=== PATIENT | female | born 1995 | race Caucasian/White ===

== ENCOUNTER 2018-07-11 18:58 | Emergency (ER) | payer OTHER ==
[~2018-07-11] VITALS: Ht 160 cm; Wt 57.6 kg
[2018-07-11] MEDS: IV NORMAL SALINE 1000ML BAG 1,000 ML IV ONE (19:15)
[2018-07-11] MEDS ORDERED: ONDANSETRON PF 4 MG/2 ML VIAL. IV ONE (19:15)
[2018-07-11] MEDS ORDERED: LIDOCAINE/EPI/TETRACAINE TOPICAL GEL 3 ML. TP ONE (19:15)
[2018-07-11 19:36] VITALS: BP 122/75
[2018-07-11] MEDS ORDERED: MORPHINE SULFATE 4 MG/ML VIAL. ONE (20:32)
[2018-07-11] MEDS ORDERED: MORPHINE SULFATE 4 MG/ML VIAL. IV ONE (20:45)
[2018-07-11 21:09] LABS: BILIRUBIN,URINE NEGATIVE (NEG); CLARITY,URINE CLEAR; COLOR,URINE YELLOW; NITRITE,URINE NEGATIVE (NEG); PROTEIN,URINE NEGATIVE (NEG-TRACE); UROBILINOGEN,URINE 0.2 mg/dL (0.2 mg/dL)
[2018-07-11 21:16] LABS: BACTERIA,URINE MANY /HPF (0-FEW); RBC,URINE 0 /HPF (0-2); SQUAMOUS EPITHELIAL CELL,UR FEW /LPF
--- NOTE | 2018-07-11 22:08 | RAD ---
Limited OB ultrasound 07/11/2018 CLINICAL HISTORY: Second trimester with abdominal pain possible trauma. TECHNIQUE: A limited real-time ultrasound examination of the gravid uterus was performed. Multiple images were obtained. FINDINGS: There is a single living IUP. The fetus is in a transverse position. cardiac and somatic activity is seen. The heart rate is 143 bpm period The maternal cervix is closed. It measures 3.3 cm in size. The placenta is a fundal position. Several placental lakes are seen scattered throughout the placenta. No significant abnormality of the placenta is seen. The amniotic fluid volume is within normal limits. Neither maternal ovary is visualized. The following measurements were obtained: BPD 4.95 cm 21 weeks 0 days HC 19.1 cm 21 weeks 2 days AC 17.1 cm 22 weeks 0 days FL 3.62 cm 21 weeks 3 days The estimated gestational age by ultrasound is 21 weeks 3 days plus or minus a standard deviation of 10 days. The estimated date of delivery by ultrasound is 11/18/2018. Detailed evaluation of anatomy was not performed IMPRESSION: Single living IUP with an estimated gestational age by ultrasound of 21 weeks 3 days plus or minus a standard deviation of 10 days. Electronically signed by: Jayesh Parkinson MD (07/11/2018 10:04 PM) [facility]
--- NOTE | 2018-07-12 04:09 | PHYS DOC ---
Past Medical History Past Medical History: No Pertinent History Past Surgical History: No Surgical History Alcohol Use: None Drug Use: None Adult General Chief Complaint Chief Complaint: LACERATION/AVULSION [facility] HPI Patient is a 22 year old G1, P0 estimated 22 week gestation female who presents from work with syncopal episode and left scalp laceration. Patient states she has had syncopal episodes 2 since . While at work today, the patient reported feeling lightheaded dizzy and overheated. She sat down and then had loss of consciousness hitting the side of her head. Patient with a 3 cm deep full thickness laceration over the superior parietal scalp. Denies headache, neck pain. No chest pain palpitations, shortness of breath. Denies abdominal pain, flank pain, vaginal discharge, bleeding or fluid leak. No other symptoms or complaints. Review of Systems Review of Systems ROS as per HPI All other systems were reviewed and found to be within normal limits, except as documented in this note. Current Medications Current Medications Current Medications Medications (Trade) Dose Ordered Sig/Cheryl Start Time Stop Time Status Last Admin Dose Admin Lidocaine/ Epinephrine (Let Topical) 3 ml 1X ONCE 07/11/18 19:15 07/11/18 19:47 DC Morphine Sulfate (Morphine Sulfate) 4 mg 1X ONCE 07/11/18 20:45 07/11/18 20:46 DC Ondansetron HCl (Zofran) 4 mg 1X ONCE 07/11/18 19:15 07/11/18 19:47 DC Sodium Chloride 1,000 ml @ 1,000 mls/hr 1X ONCE 07/11/18 19:15 07/11/18 20:14 DC 07/11/18 19:15 1,000 MLS/HR Allergies Allergies Allergies Coded Allergies Type Severity Reaction Last Updated Verified Penicillins Allergy Severe Unknown 07/11/18 Yes Physical Exam Physical Exam Constitutional: Well developed, well nourished, no acute distress, non-toxic appearance. [] HENT: Normocephalic, 3 cm full thickness horizontal laceration L parietal scalp , bleeding controlled, bilateral external ears normal, oropharynx moist, no oral exudates, nose normal. [] Eyes: PERRLA, EOMI, conjunctiva normal. [] Neck: Normal range of motion, no tenderness, will, no midline pain tenderness.. [] Cardiovascular:Heart rate regular rhythm, no murmur [] Lungs & Thorax: Bilateral breath sounds clear to auscultation .[] Abdomen: Bowel sounds normal, soft, no tenderness. [] Skin: Warm, dry. [] Back: No tenderness. [] Extremities: No tenderness. [] Neurologic: Alert and oriented X 3, normal motor function, normal sensory function, no focal deficits noted. [] Psychologic: Affect normal, judgement normal, mood normal. [] Current Patient Data Vital Signs Vital Signs Date Time Temp Pulse Resp B/P (MAP) Pulse Ox O2 Delivery O2 Flow Rate FiO2 07/11/18 19:36 97.9 86 20 122/75 (91) 99 Room Air 97.9 Lab Values Laboratory Tests Test 07/11/18 19:16 07/11/18 21:00 Glucose (Fingerstick) 78 mg/dL (70-99) Urine Collection Type Void Urine Color Yellow Urine Clarity Clear Urine pH 7.0 Urine Specific [place] 1.010 Urine Protein Negative mg/dL (NEG-TRACE) Urine Glucose (UA) Negative mg/dL (NEG) Urine Ketones (Stick) Trace mg/dL (NEG) Urine Blood Negative (NEG) Urine Nitrite Negative (NEG) Urine Bilirubin Negative (NEG) Urine Urobilinogen Dipstick 0.2 mg/dL (0.2 mg/dL) Urine Leukocyte Esterase Negative (NEG) Urine RBC 0 /HPF (0-2) Urine WBC 1-4 /HPF (0-4) Urine Squamous Epithelial Cells Few /LPF Urine Bacteria Many /HPF (0-FEW) EKG EKG [] Radiology/Procedures Radiology/Procedures [Laceration procedure Note: Patient's laceration was cleaned and let was applied. Patient was given IV morphine. The wound was explored, edges were aligned and worse andrés were placed with good wound approximation. Bleeding was controlled. Typical wound care instructions provided. ] Course & Med Decision Making Course & Med Decision Making Pertinent Labs and Imaging studies reviewed. (See chart for details) [Apical closed head injury, wound care instructions given. Case discussed with Dr. Pritchett who agrees to monitoring the patient up on the OB floor.] Dragon Disclaimer Dragon Disclaimer This electronic medical record was generated, in whole or in part, using a voice recognition dictation system. Departure Departure Impression: Primary Impression: Syncope Additional Impressions: Minor head injury Laceration of scalp Disposition: HOME, SELF-CARE Condition: GOOD Patient Instructions: Head Injury, Adult, [id number], Laceration Care, Adult , [id number], Syncope, [id number] Additional Instructions: Please go the OB joe after discharge from the ED. Upon returning home, take tyelnol for pain and wash remaining blood from your hair. Return to the ED in 8 -10 days for staple removal and follow up with your OB as scheduled. Be careful when standing for prolonged periods of time as you are risk of fall and injury. Return to the ED if new or worsening symptoms. Problem Qualifiers GREGORIA JIMENES DO Jul 12, 2018 04:09
== END 2018-07-11 22:31 | disposition home or self-care (01) ==
LOC: ER 18:58
DX: S01.01XA Laceration without foreign body of scalp, initial encounter (principal); R55 Syncope and collapse; Z88.0 Allergy status to penicillin; W22.8XXA Striking against or struck by other objects, initial encounter; Y93.89 Activity, other specified; Y92.89 Other specified places as the place of occurrence of the external cause; Y99.8 Other external cause status
CPT/HCPCS: 12002; 76815; 81001; 82962; 96360; 99285; J7030

== ENCOUNTER 2018-07-11 22:34 | Observation (INO) | payer SELFPAY ==
[2018-07-11 19:36] VITALS: BP 122/75
== END 2018-07-11 23:41 | disposition home or self-care (01) ==
LOC: 3 SO LND 22:34
PROVIDERS: ADMIT Obstetrics & Gynecology; ATTEND Obstetrics & Gynecology
DX: O26.892 Other specified pregnancy related conditions, second trimester (principal); R10.9 Unspecified abdominal pain; Z3A.21 21 weeks gestation of pregnancy
CPT/HCPCS: G0378; G0379